=== PATIENT | male | born 1960 | race Caucasian/White ===

== ENCOUNTER 2017-03-31 08:38 | Outpatient (CLI) | payer OTHER ==
[~2017-03-31 08:38] MED LIST: DECADRON P4 MG/ML-1M IH; FLEXERIL10 MG PO; GILTUSS TR TAB1 EACH PO; TESSALON PERLE100 M1 PO; TORADOL60 MG IM; VOLTAREM 50 MG PO
== END 2017-03-31 09:08 | disposition home or self-care (01) ==
LOC: PPHC 08:38
DX: R05 Cough (principal)

== ENCOUNTER → 2017-08-24 | Outpatient (CLI) | payer OTHER | END | disposition home or self-care (01) | LOC: RAD 16:06 | DX: M79.671 Pain in right foot (principal) ==

== ENCOUNTER 2017-09-11 06:13 | Outpatient (CLI) | payer OTHER | END 2017-09-11 06:20 | disposition home or self-care (01) | LOC: LAB 06:13 | DX: R42 Dizziness and giddiness (principal); Z12.5 Encounter for screening for malignant neoplasm of prostate; R51 Headache; Z12.11 Encounter for screening for malignant neoplasm of colon ==

== ENCOUNTER 2018-02-07 17:51 | Outpatient (CLI) | payer OTHER | END 2018-02-07 18:17 | disposition home or self-care (01) | LOC: RAD 17:51 | DX: R05 Cough (principal) ==

== ENCOUNTER → 2018-04-04 13:15 | Outpatient (CLI) | payer OTHER | END | disposition home or self-care (01) | LOC: LAB 13:15 | DX: J11.1 Influenza due to unidentified influenza virus with other respiratory manifestations (principal); J06.9 Acute upper respiratory infection, unspecified ==

== ENCOUNTER 2018-08-09 06:48 | Outpatient (CLI) | payer OTHER | END 2018-08-09 06:52 | disposition home or self-care (01) | LOC: LAB 06:48 | DX: E78.49 Other hyperlipidemia (principal); R42 Dizziness and giddiness; Z00.00 Encounter for general adult medical examination without abnormal findings ==

== ENCOUNTER → 2019-01-31 | Outpatient (CLI) | payer OTHER | END | disposition home or self-care (01) | LOC: RAD 08:56 | DX: M54.2 Cervicalgia (principal) ==

== ENCOUNTER 2019-02-05 06:38 | Outpatient (CLI) | payer OTHER | END 2019-02-05 06:40 | disposition home or self-care (01) | LOC: LAB 06:38 | DX: E78.49 Other hyperlipidemia (principal); Z00.00 Encounter for general adult medical examination without abnormal findings; E59 Dietary selenium deficiency; R42 Dizziness and giddiness; R51 Headache; N40.0 Benign prostatic hyperplasia without lower urinary tract symptoms ==

== ENCOUNTER 2019-05-12 10:22 | Outpatient (CLI) | payer OTHER | END 2019-05-12 10:25 | disposition home or self-care (01) | LOC: LAB 10:22 | DX: J11.1 Influenza due to unidentified influenza virus with other respiratory manifestations (principal); R05 Cough ==

== ENCOUNTER 2019-05-12 14:13 | Outpatient (CLI) | payer OTHER | END 2019-05-12 14:19 | disposition home or self-care (01) | LOC: LAB 14:13 | DX: R53.81 Other malaise (principal); R53.1 Weakness; J06.9 Acute upper respiratory infection, unspecified ==

== ENCOUNTER 2019-11-25 18:02 | Emergency (ER) | payer OTHER ==
[~2019-11-25] VITALS: Ht 182.9 cm; Wt 89.4 kg
== END 2019-11-25 20:56 | disposition home or self-care (01) ==
LOC: ER 18:02
DX: T24.101A Burn of first degree of unspecified site of right lower limb, except ankle and foot, initial encounter (principal); L03.115 Cellulitis of right lower limb; X08.8XXA Exposure to other specified smoke, fire and flames, initial encounter; Y93.89 Activity, other specified; Y92.89 Other specified places as the place of occurrence of the external cause; Y99.8 Other external cause status

== ENCOUNTER 2020-06-17 06:49 | Outpatient (CLI) | payer OTHER | END 2020-06-17 06:54 | disposition home or self-care (01) | LOC: LAB 06:49 | PROVIDERS: ATTEND Internal Medicine Cardiovascular Disease | DX: I10 Essential (primary) hypertension (principal); E11.9 Type 2 diabetes mellitus without complications; E03.8 Other specified hypothyroidism; E78.2 Mixed hyperlipidemia; N40.0 Benign prostatic hyperplasia without lower urinary tract symptoms; E55.9 Vitamin D deficiency, unspecified ==

== ENCOUNTER → 2021-03-01 | Outpatient (CLI) | payer OTHER | END | disposition home or self-care (01) | LOC: PPH VACUNA 07:00 | PROVIDERS: ATTEND Emergency Medicine Pediatric Emergency Medicine | DX: Z23 Encounter for immunization (principal) ==

== ENCOUNTER 2021-03-31 09:07 | Outpatient (CLI) | payer OTHER | END 2021-03-31 09:10 | disposition home or self-care (01) | LOC: LAB 09:07 | PROVIDERS: ATTEND General Practice | DX: Z20.828 Contact with and (suspected) exposure to other viral communicable diseases (principal) ==

== ENCOUNTER → 2021-05-25 06:13 | Outpatient (CLI) | payer OTHER | END | disposition home or self-care (01) | LOC: LAB 06:13 | PROVIDERS: ATTEND Family Medicine | DX: N39.8 Other specified disorders of urinary system (principal); I10 Essential (primary) hypertension; D64.9 Anemia, unspecified; Z12.5 Encounter for screening for malignant neoplasm of prostate; E78.2 Mixed hyperlipidemia ==

== ENCOUNTER 2021-07-21 05:55 | Day surgery (SDC) | payer OTHER ==
[~2021-07-21 05:55] MED LIST changes: +ZOCOR20 MG PO
== END 2021-07-21 10:15 | disposition home or self-care (01) ==
LOC: CIR.AMB 05:55
PROVIDERS: ATTEND Specialist
DX: L72.0 Epidermal cyst (principal); E78.5 Hyperlipidemia, unspecified; Z87.891 Personal history of nicotine dependence; Z20.822 Contact with and (suspected) exposure to COVID-19

== ENCOUNTER 2021-08-12 15:00 | Outpatient (CLI) | payer OTHER | END 2021-08-12 15:30 | disposition home or self-care (01) | LOC: PPH VACUNA 15:00 | PROVIDERS: ATTEND Emergency Medicine Pediatric Emergency Medicine | DX: Z23 Encounter for immunization (principal) ==

== ENCOUNTER 2021-09-06 06:47 | Outpatient (CLI) | payer OTHER | END 2021-09-06 06:48 | disposition home or self-care (01) | LOC: LAB 06:47 | DX: N39.8 Other specified disorders of urinary system (principal); I10 Essential (primary) hypertension; D64.9 Anemia, unspecified; Z12.5 Encounter for screening for malignant neoplasm of prostate; Z12.11 Encounter for screening for malignant neoplasm of colon; E78.2 Mixed hyperlipidemia ==

== ENCOUNTER 2022-01-26 08:31 | Outpatient (CLI) | payer OTHER | END 2022-01-26 08:41 | disposition home or self-care (01) | LOC: PPH VACUNA 08:31 | PROVIDERS: ATTEND Emergency Medicine Pediatric Emergency Medicine | DX: Z23 Encounter for immunization (principal) ==

== ENCOUNTER 2022-01-26 08:35 | Outpatient (CLI) | payer OTHER | END 2022-01-26 08:40 | disposition home or self-care (01) | LOC: PPH VACUNA 08:35 | PROVIDERS: ATTEND Emergency Medicine Pediatric Emergency Medicine | DX: Z23 Encounter for immunization (principal) ==

== ENCOUNTER 2022-03-22 08:57 | Outpatient (CLI) | payer OTHER | END 2022-03-22 09:07 | disposition home or self-care (01) | LOC: LAB 08:57 | PROVIDERS: ATTEND General Practice | DX: Z00.00 Encounter for general adult medical examination without abnormal findings (principal); E78.5 Hyperlipidemia, unspecified; E55.9 Vitamin D deficiency, unspecified; Z12.5 Encounter for screening for malignant neoplasm of prostate; R10.9 Unspecified abdominal pain; M54.9 Dorsalgia, unspecified; M54.2 Cervicalgia ==

== ENCOUNTER 2022-11-28 08:57 | Outpatient (CLI) | payer OTHER | END 2022-11-28 09:04 | disposition home or self-care (01) | LOC: SONOGRAMA 08:57 | PROVIDERS: ATTEND Urology | DX: N48.6 Induration penis plastica (principal); R31.21 Asymptomatic microscopic hematuria; F52.21 Male erectile disorder; R31.29 Other microscopic hematuria ==

== ENCOUNTER 2023-01-05 11:45 | Emergency (ER) | payer OTHER ==
[~2023-01-05] VITALS: Ht 182.9 cm; Wt 86.2 kg
[2023-01-05] MEDS ORDERED: XARELTO15 MG PO (13:19)
== END 2023-01-05 13:35 | disposition home or self-care (01) ==
LOC: ER 11:45
DX: I82.492 Acute embolism and thrombosis of other specified deep vein of left lower extremity (principal)

== ENCOUNTER → 2023-01-11 07:56 | Outpatient (CLI) | payer OTHER ==
[~2023-01-11 07:56] MED LIST changes: +XARELTO15 MG PO
[2023-01-11 09:18] LABS: URINE APPEARANCE Clear; URINE BILIRRUBIN Negative (NEGATIVE); URINE BLOOD Trace; URINE COLOR Yellow; URINE GLUCOSE Negative (NEGATIVE); URINE LEUKOCYTE Negative; URINE NITRATE Negative; URINE PROTEIN Negative (NEGATIVE); URINE UROBILINOGEN 0.2 E.U./dl
[2023-01-11 09:21] LABS: URINE RBC 17.2 uL (0.0-20.8)
[2023-01-11 09:25] LABS: HEMATOCRIT 46.2 % (39.0-48.0); HEMOGLOBIN 15.3 g/dL (13-16.00); MEAN CELL VOLUME 85.4 fL (80.0-100.00); MEAN CORPUSCULAR HEMOGLOBIN 28.2 pg (27.00-32.0); MEAN CORPUSCULAR HGB CONC 33.1 g/dl (32.0-36.0); PLATELET COUNT 317 K/uL (150-450); RED BLOOD COUNT 5.41 M/uL (4.00-6.00); RED CELL DISTRIBUTION WIDTH 13.5 % (11.5-14.5)
[2023-01-11 09:46] LABS: URINE BACTERIA 3.7 uL (0.0-1933); URINE EPITHELIAL CELLS 1.3 uL (0.0-38.8); URINE WBC 0.9 uL (0.0-23.2)
[2023-01-11 10:08] LABS: ALBUMIN 3.8 gm/dL (3.4-5.0); BILIRUBIN TOTAL 0.71 mg/dL (0.3-1.2); BILIRUBIN,CONJUGATED 0.17 mg/dL (0.0-0.2); BILIRUBIN,UNCONJUGATED 0.54 mg/dL (0.0-0.6); CALCIUM 9.1 mg/dL (8.5-10.1); CHOL HDL RATIO 3.8 (0-5.0); CREATININE SERUM 0.96 mg/dL (0.70-1.30); GFR 79.37; GLOBULINA 3.4 G/DL (2.4-3.5); POTASSIUM 4.58 mEq/L (3.5-5.1); PROSTATIC SPECIFIC ANTIGEN 3.26 NG/ML (0.010-4.00); T4 TOTAL 8.41 UG/DL (4.5-12.1); TOTAL PROTEIN 7.2 gm/dL (6.4-8.2); TSH 1.48 uIU/mL (0.358-3.74)
[2023-01-11 11:15] LABS: T3 TOTAL 0.975 ng/ml (0.846-2.02); VITAMIN D3 25 HYDROXY 28.38 ng/ml (30-120)
== END | disposition home or self-care (01) ==
LOC: LAB 07:56
PROVIDERS: ATTEND General Practice
DX: E78.5 Hyperlipidemia, unspecified (principal); E55.9 Vitamin D deficiency, unspecified; N39.0 Urinary tract infection, site not specified; R42 Dizziness and giddiness; Z12.5 Encounter for screening for malignant neoplasm of prostate

== ENCOUNTER → 2023-02-26 08:53 | Outpatient (CLI) | payer OTHER | END | disposition home or self-care (01) | LOC: NUCLEAR 01-12 09:00 → LAB 08:53 | PROVIDERS: ATTEND Internal Medicine Hematology & Oncology | DX: D68.59 Other primary thrombophilia (principal); E72.12 Methylenetetrahydrofolate reductase deficiency; I80.12 Phlebitis and thrombophlebitis of left femoral vein ==

== ENCOUNTER → 2023-10-01 07:51 | Outpatient (CLI) | payer OTHER ==
[2023-10-01 08:15] LABS: URINE APPEARANCE Clear; URINE BILIRRUBIN Negative (NEGATIVE); URINE BLOOD Trace; URINE COLOR Yellow; URINE GLUCOSE Negative (NEGATIVE); URINE KETONE Negative (NEGATIVE); URINE LEUKOCYTE Negative; URINE NITRATE Negative; URINE PROTEIN Negative (NEGATIVE); URINE UROBILINOGEN 0.2 E.U./dl
[2023-10-01 08:17] LABS: URINE BACTERIA 6.2 uL (0.0-1933); URINE EPITHELIAL CELLS 1.6 uL (0.0-38.8); URINE RBC 15.8 uL (0.0-20.8)
[2023-10-01 08:20] LABS: HEMATOCRIT 43.9 % (39.0-48.0); HEMOGLOBIN 15.1 g/dL (13-16.00); MEAN CELL VOLUME 87.7 fL (80.0-100.00); MEAN CORPUSCULAR HEMOGLOBIN 30.2 pg (27.00-32.0); MEAN CORPUSCULAR HGB CONC 34.4 g/dl (32.0-36.0); PLATELET COUNT 282 K/uL (150-450); RED CELL DISTRIBUTION WIDTH 13.7 % (11.5-14.5)
[2023-10-01 08:20] LABS: URINE CAST 0.15 uL (0.0-1.40)
[2023-10-01 09:16] LABS: ALBUMIN 3.6 gm/dL (3.4-5.0); BILIRUBIN TOTAL 0.8 mg/dL (0.3-1.2); BILIRUBIN,CONJUGATED 0.19 mg/dL (0.0-0.2); BILIRUBIN,UNCONJUGATED 0.61 mg/dL (0.0-0.6); CALCIUM 9.1 mg/dL (8.5-10.1); CHOL HDL RATIO 3.2 (0-5.0); CREATININE SERUM 0.88 mg/dL (0.70-1.30); GFR 87.46; GLOBULINA 3.3 G/DL (2.4-3.5); POTASSIUM 4.25 mEq/L (3.5-5.1); PROSTATIC SPECIFIC ANTIGEN 3.41 NG/ML (0.010-4.00); T4 TOTAL 8.16 UG/DL (4.5-12.1); TOTAL PROTEIN 6.9 gm/dL (6.4-8.2); TSH 1.47 uIU/mL (0.358-3.74)
[2023-10-01 12:59] LABS: T3 TOTAL 0.938 ng/ml (0.846-2.02)
== END | disposition home or self-care (01) ==
LOC: LAB 07:51
PROVIDERS: ATTEND General Practice
DX: E78.5 Hyperlipidemia, unspecified (principal); E55.9 Vitamin D deficiency, unspecified; N39.0 Urinary tract infection, site not specified; R42 Dizziness and giddiness; R10.9 Unspecified abdominal pain; Z12.5 Encounter for screening for malignant neoplasm of prostate; R68.82 Decreased libido